=== PATIENT | male | born 1965 | race Caucasian/White ===

== ENCOUNTER 2021-10-25 07:37 | Day surgery (SDC) | payer BC ==
[2021-10-25] MEDS ORDERED: NA CHLORIDE 0.9% 1,000 ML ONE (08:16)
[2021-10-25 08:25] LABS: SARS-CoV-2 Antigen Rapid Res Negative (Negative)
[2021-10-25] MEDS ORDERED: LIDOCAINE 1% MPF 5 ML VIAL ONE (09:27)
[2021-10-25] MEDS ORDERED: propofoL 200 MG/20 ML VIAL IV ONE ×2 (09:27)
[2021-10-25] MEDS ORDERED: GLYCOPYRROLATE 0.2 MG/ML SYR ONE (09:32)
--- NOTE | 2021-10-25 10:02 | ENDO RPT ---
[address], [address] COLONOSCOPY PROCEDURE REPORT EXAM DATE: 10/25/2021 PATIENT NAME: Tirso Solano MR #: [id number] BIRTHDATE: 1965 ATTENDING: Quincy Crowley DR STATUS: outpatient LATENT PRINT EXAMINER: Clifton Argueta and Kacey Stearns RN INDICATIONS: The patient is a 56 yr old Male here for a colonoscopy due to colon cancer screening PROCEDURE PERFORMED: Colonoscopy with biopsy - cold polypectomy MEDICATIONS: Per Anesthesia. ESTIMATED BLOOD LOSS: None CONSENT: The patient understands the risks and benefits of the procedure and understands that these risks include, but are not limited to: sedation, allergic reaction, infection, perforation and/or bleeding. Alternative means of evaluation and treatment include, among others: physical exam, x-rays, and/or surgical intervention. The patient elects to proceed with this endoscopic procedure. DESCRIPTION OF PROCEDURE: During intra-op preparation period all mechanical medical equipment was checked for proper function. Hand hygiene and appropriate measures for infection prevention was taken. Procedure, possible complications, alternatives including, but not limited to possibility of bleeding, perforation, tear, infection, sepsis, need for surgery, need for blood transfusion, were explained to the patient. After the risks, benefits and alternatives of the procedure were thoroughly explained, Informed consent was verified, confirmed and timeout was successfully executed by the treatment team. The patient was placed in the left lateral position. A digital rectal exam was performed and revealed internal hemorrhoids, A digital rectal exam was performed and revealed external hemorrhoids, and A digital rectal exam was performed and revealed an anal fissure. After appropriate level of anesthesia, the scope was passed. The EC-[id number] ([id number]) endoscope was introduced through the anus and advanced to the cecum, which was identified by both the appendix and ileocecal valve. The quality of the prep was fair. The instrument was then slowly withdrawn as the colon was fully examined. Scope withdrawal time was 11 minutes. COLON FINDINGS: A smooth and polypoid shaped semi-pedunculated polyp ranging between 5-9mm in size with a mucous cap was found in the sigmoid colon. A polypectomy was performed using snare cautery. The resection was complete, the polyp tissue was completely retrieved and sent to histology. Moderate sized internal and external hemorrhoids were found. Medium sized anal fissure was found in the anal canal. The colon mucosa was otherwise normal. Retroflexed views revealed no abnormalities. The scope was then completely withdrawn from the patient and the procedure terminated. ADVERSE EVENTS: There were no complications. IMPRESSIONS: 1. Semi-pedunculated polyp ranging between 5-9mm in size was found in the sigmoid colon; polypectomy was performed using snare cautery 2. Moderate sized internal and external hemorrhoids 3. Medium sized anal fissure in the anal canal 4. The colon mucosa was otherwise normal RECOMMENDATIONS: 1. avoid NSAIDS 2. avoid NSAIDS for 2 weeks 3. await biopsy results 4. fiber rich diet 5. follow-up: office 2 week(s) 6. Monitor for any evidence of rectal bleeding. 7. increase dietary water 8. hemorrhoidal hygiene RECALL: for Colonoscopy, pending biopsy results. Quincy Crowley DR eSigned: Quincy Crowley DR 10/25/2021 10:01 AM cc: CPT CODES: ICD9 CODES: PATIENT NAME: Tirso Solano MR#: [id number]
[2021-10-25 11:15] VITALS: BP 172/70; TEMP 97.1; O2SAT 100
== END 2021-10-25 10:45 | disposition home or self-care (01) ==
LOC: OR 07:37
PROVIDERS: ATTEND Surgery
PROC: 0DBN8ZX Excision of Sigmoid Colon, Via Natural or Artificial Opening Endoscopic, Diagnostic (ICD-10-PCS; principal; 2021-10-25 08:45)
DX: Z12.11 Encounter for screening for malignant neoplasm of colon (principal); D12.5 Benign neoplasm of sigmoid colon; Z20.822 Contact with and (suspected) exposure to COVID-19; K64.8 Other hemorrhoids; K64.4 Residual hemorrhoidal skin tags; K60.2 Anal fissure, unspecified
CPT/HCPCS: 45385; 36415; 82947; 88305; 87811; J2704 ×2; J7030

== ENCOUNTER 2024-05-27 07:39 | Day surgery (SDC) | payer BC ==
[2024-05-26 14:35] LABS: Absolute Eosinophils 0.2 K/uL (0-0.5); Absolute Lymphocytes (CBC) 3.1 K/uL (0.7-4.9); Absolute Monocytes 0.5 K/uL (0.1-1.3); Absolute Neutrophil 4.5 K/uL (1.8-8.0); Basophils % 0.3 % (0-1.3); Eosinophils % 2.4 % (0-4.4); Hematocrit 39.8 % (39.6-49.0); Hemoglobin 13.6 g/dL (13.6-17.9); MCH 26.9 pg (27.0-35.0); MCHC 34.3 g/dL (32.0-36.0); MCV 78.5 fL (80-100); MPV 8.4 fL (7.6-11.3); Monocytes % 6.5 % (3.3-12.3); Neutrophils % 53.8 % (41.7-73.7); Nucleated Red Blood Cells % 0.1 % (0-0); Platelets 258 thou/uL (152-406); RBC Red Blood Cell Count 5.07 M/uL (4.33-5.43); Red Cell Distribution Width 12.5 % (12.1-15.2)
[2024-05-26 14:46] LABS: Anion Gap 8.7 mEq/L (5.0-15.0); Potassium 3.7 mEq/L (3.5-5.1)
[2024-05-27] MEDS: HYDRALAZINE HCL 20 MG/ML VIAL ONE ×2 (08:56→12:50)
[2024-05-27] MEDS ORDERED: LIDOCAINE JELLY 2% 5 ML SYRINGE TOP ONE (10:15)
[2024-05-27] MEDS ORDERED: LIDOCAINE 2% MPF 5 ML VIAL ONE (11:12)
[2024-05-27] MEDS ORDERED: KETOROLAC 30 MG/ML INJ ONE (11:12)
[2024-05-27] MEDS ORDERED: ONDANSETRON 4 MG/2 ML VIAL ONE (11:12)
[2024-05-27] MEDS ORDERED: dexAMETHasone 10 MG/ML VIAL ONE (11:12)
[2024-05-27] MEDS ORDERED: propofoL 200 MG/20 ML VIAL IV ONE (11:12)
[2024-05-27] MEDS ORDERED: MIDAZOLAM HCL 2 MG/2 ML INJ ONE (11:13)
[2024-05-27] MEDS ORDERED: FENTANYL CITR 100 MCG/2 ML ONE (11:13)
[2024-05-27] MEDS: CEFOXITIN SODIUM 2 GM/VIAL ONE (11:21)
[2024-05-27] MEDS: NA CHLORIDE 0.9% 1,000 ML ONE (11:21)
[2024-05-27] MEDS ORDERED: KETAMINE HCL IN 0.9 % NACL 50 MG/5 ML SYRINGE IV ONE (11:36)
[2024-05-27] MEDS: LIDOCAINE HCL/EPINEPHRINE 20 ML MDV ONE (11:45)
[2024-05-27] MEDS: LIDOCAINE JELLY 2% 5 ML SYRINGE TOP ONE (12:00)
--- NOTE | 2024-05-27 12:05 | P.OP ---
Preoperative diagnosis: Hemorrhoids Postoperative diagnosis: Hemorrhoids Primary procedure: Exam under anesthesia Secondary procedure: Hemorrhoidectomy Anesthesia: GETA + Local Estimated blood loss: <5cc Specimen: Hemorrhoid Findings: Posterior Column Thrombosed Hemorrhoid Complications: None Implants: Gelfoam Transferred to: Recovery Room Condition: Good
[2024-05-27] MEDS: LABETALOL 20 MG/4ML SYRINGE IV ONE (13:11)
--- NOTE | 2024-05-27 13:17 | OP ---
Date of Procedure: 05/27/2024 Surgeon: Quincy Crowley MD, Preoperative Diagnosis: Internal hemorrhoids. Postoperative Diagnosis: Internal hemorrhoids. Procedures Performed: 1. Exam under anesthesia. 2. Hemorrhoidectomy. Anesthesia: General endotracheal plus local with 1% lidocaine with epinephrine. Estimated Blood Loss: 5 cc. Specimen: Hemorrhoids. Findings: Posterior column thrombosed hemorrhoids noted. Complications: None. Implants: Gelfoam. Disposition: The patient was transferred to recovery room in good condition. Procedure In Detail: After informed consent was obtained, the patient was brought to the operating r oom, prepped and draped in the usual sterile fashion. After adequate anesthesia was achieved, I anes thetized the area in the periumbilical region down to subcutaneous tissues using 1% lidocaine with ep inephrine. After this was performed, I placed sequentially larger endoscopy/anoscope into the anal c anal ultimately seeing a posterior column large thrombosed internal/external anal hemorrhoid. This a jerardo was demarcated with electrocautery. I then the anoderm from the muscular tissue. Licha ruiz, after being demarcated, I used the LigaSure device to ligate these structure, sent off for pa thologic examination. The area was copiously irrigated. Then, I re-imbricated and closed the defect using 3-0 Vicryl suture in a running fashion with good approximation of tissues. The cavity was the n irrigated. No additional pathologic findings were appreciated. No additional hemorrhoidectomies w ere appreciated at this point and required. At this point, I place Gelfoam soaked in lidocaine into the anal canal and a sterile dressing placed over top. The patient tolerated the procedure without i ncident or complication, transferred to PACU in good condition. All counts were correct at the end o f the case. SOY/RALPH Voice ID: [id number] Report ID: [id number]
[2024-05-27] MEDS ORDERED: HYDROCODONE/APAP 10/325 TAB ONE (14:06)
[2024-05-27] MEDS: HYDROCODONE/APAP 10/325 TAB PO ONE (14:18)
[2024-05-27 14:38] VITALS: BP 157/72; TEMP 97.8; O2SAT 97
--- NOTE | 2024-05-30 12:15 | EKG ---
Test Date: 2024-05-26 Test Time: 15:18:52 Third Rigger: JESSY MEASUREMENT RESULTS: Intervals: Rate: 62 AK: 134 QRSD: 90 QT: 412 QTc: 418 [place]: P: 41 AK: 134 QRS: 46 T: 40 INTERPRETIVE STATEMENTS: Normal sinus rhythm Nonspecific T wave abnormality Abnormal ECG No previous ECG available for comparison Electronically Signed On 05-30-24 12:08:49 [employer]ENT[employer] SUPERVISOR by Prasanna Vazquez
== END 2024-05-27 14:36 | disposition home or self-care (01) ==
LOC: OR 07:39
PROVIDERS: ATTEND Surgery
PROC: 06BY0ZC Excision of Hemorrhoidal Plexus, Open Approach (ICD-10-PCS; principal; 2024-05-27 10:00)
DX: K64.5 Perianal venous thrombosis (principal); K64.8 Other hemorrhoids
CPT/HCPCS: 93005; 85025; 80048; 36415; 82947 ×2; 88304; 46255; J0360 ×2; J2704; J2003; J2250; J3010; J1100; J0694; J2405; J7030